=== PATIENT | female | born 1960 | race Two or more races ===

== ENCOUNTER 2025-01-14 17:24 | Emergency (ER) | payer OTHER, MEDICAID ==
[~2025-01-14] VITALS: Ht 157.5 cm; Wt 61.7 kg
[2025-01-14 18:26] VITALS: BP 135/65; PULSE 65; RESP 16; TEMP 97.5; O2SAT 97
--- NOTE | 2025-01-14 19:07 | ED.PDOC ---
GI ASSESSMENT HPI Comments 64-year-old female presents to ER with complaints of constipation x3 weeks. Patient reports that she has been experiencing constipation x "3 weeks" with 7/10 diffuse lower abdominal pain x1 day. Reports that she followed up with a provider at [facility] two days ago and was prescribed lactulose that she has been taking without relief. Patient presents to ER ambulatory on arrival, with steady gait, in no distress and states she was able to pass gas and reports that she did have a BM today that she states was "very small". Denies fever, nausea/vomiting, chest pain, diarrhea, changes in urination or any further symptoms/complaints Chief Complaint: Constipation Time Seen by MD: 18:14 Primary Care Provider: KREBS Reviewed Notes: Nurses Notes, Medications, Allergies Allergies: Coded Allergies: NO KNOWN ALLERGIES (Unverified , 01/14/25) Home Meds Active Scripts Docusate Sodium (Colace) 100 Mg Cap, 1 CAP PO BID, #30 CAP 0 Refills Prov:PRATIMA WOODWARD 01/14/25 Magnesium Citrate (Magnesium Citrate) 1.745 Gm/30 Ml Tess, 150 ML PO DAILY, #1 BOTTLE 0 Refills Prov:PRATIMA WOODWARD 01/14/25 Information Source: Patient Mode of Arrival: Ambulatory Past Medical History PAST MEDICAL HISTORY: Anxiety Surgical History: Denies all surgeries Family History Family History: Unknown Social History Smoker: Non-Smoker Alcohol: Denies ETOH Use Drugs: Denies Drug Use Lives In: Home Constitutional: denies: chills, diaphoresis, fatigue, fever, malaise, sweats, weakness, others EENTM: denies: blurred vision, double vision, ear bleeding, ear discharge, ear drainage, ear pain, ear ringing, eye pain, eye redness, hearing loss, mouth pain, mouth swelling, nasal discharge, nose bleeding, nose congestion, nose pain, photophobia, tearing, throat pain, throat swelling, voice changes, others Respiratory: denies: cough, hemoptysis, orthopnea, SOB at rest, shortness of breath, SOB with excertion, stridor, wheezing, others Cardiovascular: denies: chest pain, dizzy spells, diaphoresis, Dyspnea on exertion, edema, irregular heart beat, left arm pain, lightheadedness, palpitations, PND, syncope, others Gastrointestinal: reports: others (As stated in HPI) Genitourinary: denies: abnormal vagina bleeding, burning, dyspareunia, dysuria, flank pain, frequency, hematuria, incontinence, pain, , vagina discharge, urgency, others Neurological: denies: dizziness, fainting, headache, left sided numbness, left sided weakness, numbness, paresthesia, pre-existing deficit, right sided numbness, right sided weakness, seizure, speech problems, tingling, tremors, weakness, others Musculoskeletal: denies: back pain, gout, joint pain, joint swelling, muscle pain, muscle stiffness, neck pain, others Integumetry: denies: bruises, change in color, change in hair/nails, dryness, laceration, lesions, lumps, rash, wounds, others Allergic/Immunocompromised: denies: Difficulty Healing, Frequent Infections, Hives, Itching, others Hematologic/Lymphatic: denies: anemia, blood clots, easy bleeding, easy brui sing, swollen glands, others Endocrine: denies: excessive hunger, excessive sweating, excessive thirst, ex cessive urination, flushing, intolerance to cold, intolerance to heat, unexplained weight gain, unexplained weight loss, others Psychiatric: denies: anxiety, bipolar disorder, depression, hopeless, panic disorder, schizophrenia, sleepless, suicidal, others Physical Exam General Appearance: No Apparent Distress HEENT: PERRL/EOMI Neck: Full Range of Motion, Non-Tender, Normal Respiratory: Chest Non-Tender, Lungs Clear, No Accessory Muscle Use, No Respiratory Distress, Normal Breath Sounds Cardiovascular: No Murmur, No Gallop, Regular Rate/Rhythm Breast Exam: Deferred Gastrointestinal: No Organomegaly, No Pulsatile Mass, Normal Bowel Sounds, Soft, Other (Slight TTP to left lower abdomen noted. No rebound/guarding noted. No hernia/masses/skin changes noted. No otther TTP to abdomen noted) Genitalia: Deferred Pelvic: Deferred Rectal: Deferred Extremities: Normal capillary refill, Normal range of motion Neurologic: Alert, condenser tube tender II-XII nml as Tested, No Motor Deficits, Normal Affect, Normal Mood, No Sensory Deficits Cerebellar Function: Normal Reflexes: Normal Skin: Dry, Normal Color, Warm Lymphatic: No Adenopathy Was a procedure done? Was a procedure done?: No Sedation Sedation?: No GI differential Dx Differential Diagnosis: Bowel Obstruction, GI hemorrhage, Ischemic Bowel, Trauma intraabdominal, UTI X-Ray, Labs, Meds, VS Vital Signs Date Time Temp Pulse Resp B/P (MAP) Pulse Ox O2 Delivery O2 Flow Rate FiO2 01/14/25 18:26 97.5 65 16 135/65 (88) 97 97.5 01/14/25 18:26 65 16 97 Room Air 01/14/25 18:08 97.5 65 16 135/65 (88) 97 97.5 Lab Test 01/14/25 19:22 01/14/25 19:00 Range/Units White Blood Count 5.6 4.4-10.8 10^3/uL Red Blood Count 4.17 4.0-5.20 10^6/uL Hemoglobin 14.5 12.2-16.2 g/dL Hematocrit 42.3 36.0-46.0 % Mean Corpuscular Volume 101.6 H 80.0-100.0 fL Mean Corpuscular Hemoglobin 34.7 H 28.0-32.0 pg Mean Corpuscular Hemoglobin Concent 34.2 32.0-36.0 g/dL Red Cell Distribution Width 13.4 11.8-14.3 % Platelet Count 194 140-450 10^3/uL Mean Platelet Volume 7.7 6.9-10.8 fL Neutrophils (%) (Auto) 45.6 37.0-80.0 % Lymphocytes (%) (Auto) 44.5 10.0-50.0 % Monocytes (%) (Auto) 5.9 0.0-12.0 % Eosinophils (%) (Auto) 3.0 0.0-7.0 % Basophils (%) (Auto) 1.0 0.0-2.0 % Neutrophils # (Auto) 2.5 1.6-8.6 10 ^3/uL Lymphocytes # (Auto) 2.5 0.4-5.4 10 ^3/uL Monocytes # (Auto) 0.3 0-1.3 10 ^3/uL Eosinophils # (Auto) 0.2 0-0.8 10 ^3/uL Basophils # (Auto) 0.1 0-0.2 10 ^3/uL Nucleated Red Blood Cells 0.1 % Sodium Level 139 136-145 mmol/L Potassium Level 4.2 3.5-5.1 mmol/L Chloride Level 108 H 98-107 mmol/L Carbon Dioxide Level 26 20-31 mmol/L Anion Gap 5 5-15 Blood Urea Nitrogen 9 9-23 mg/dL Creatinine 0.82 0.550-1.02 mg/dL Glomerular Filtration Rate Calc 79 >90 mL/min BUN/Creatinine Ratio 11.0 10.0-20.0 Serum Glucose 103 74-106 mg/dL Calcium Level 10.3 8.7-10.4 mg/dL Total Bilirubin 0.7 0.2-1.0 mg/dL Aspartate Amino Transferase (AST) 22 13-40 U/L Alanine Aminotransferase (ALT) 21 7-40 U/L Alkaline Phosphatase 36 L 46-116 U/L Total Protein 7.5 5.7-8.2 g/dL Albumin 4.8 3.2-4.8 g/dL Lipase 31 12-53 U/L Urine Color Colorless Yellow Urine Clarity Clear Clear Urine pH 7.0 5.0-9.0 Urine Specific Gordon 1.004 1.001-1.035 Urine Protein Negative Negative Urine Ketones Negative Negative Urine Blood Negative Negative /uL Urine Nitrite Negative Negative Urine Bilirubin Negative Negative Urine Urobilinogen Normal Negative mg/dL Urine Leukocyte Esterase Negative Negative /uL Urine RBC 1 0 - 4 /hpf Urine Microscopic WBC 0-5 /HPF Urine Squamous Epithelial Cells Few <5 /hpf Urine Bacteria Few H None Seen /hpf Urine Glucose Normal Normal mg/dL PATIENT: DAYANA METZACCT: [id number]: [id number] : 1960 LOC: ER ROOM / BED: / AGE / SEX: 64 / F ADM STATUS: REG ER SERVICE 13 ORDERING PHYSICIAN: PRATIMA WOODWARD PROCEDURE(s): ABPL - CT AB PEL WO CON-NO ORAL OR IV REASON: constipation ORDER NUMBER(s): [id number], ACCESSION NUMBER(s): [id number] Exam: CT CT AB PEL WO CON-NO ORAL OR IV History: constipation Comparison Study: None available at time of dictation. TECHNIQUE: Multidetector CT of the abdomen was performed from lung bases to pubic symphysis. Imaging was performed without IV contrast. Axial, coronal and sagittal multiplanar reformats were obtained from the axial data set by the technologist. Radiation Dose Information: CT Dose: CTDI volume is 5.5 mGy. Dose-length product is 261.88 mGy*cm FINDINGS: Bibasilar atelectasis. Partially visualized heart is unremarkable. Liver, spleen, gallbladder, pancreas and adrenal glands are unremarkable. Kidneys, ureters and urinary bladder unremarkable. Uterus and adnexa are unremarkable. Stomach is unremarkable. Small bowel loops are unremarkable. Appendix is Incompletely visualized with the visualized appendix unremarkable. Without complete visualization of the appendix, can not exclude acute appendicitis. Redundant colon. Small amount of fecal material within the sigmoid. Otherwise, moderate to large amount of fecal material within the remainder of the colon. No evidence of intraperitoneal free air or free fluid. No evidence of aortic aneurysm. Mild atherosclerotic calcification of the aorta. No significant lymphadenopathy. Small fat containing umbilical hernia. The soft tissues unremarkable. Partially visualized left breast implant. No destructive osseous lesions are noted. Mild loss of superior vertebral body height of T11 with superior T11 endplate Schmorl node of unknown chronicity. Punctate sclerotic foci of the left iliac bone which may represent bone islands. IMPRESSION: No evidence of acute abdominopelvic abnormalities. Small amount of fecal material within the sigmoid. Otherwise, moderate to large amount of fecal material within the remainder of the colon. ATED BY: DREA ALEXANDER DO DICTATED DATE/TIME: 01/14/251939 SIGNED BY: DREA ALEXANDER DO SIGNED DATE/TIME: 01/14/251939 CC: CBC reviewed without any significant abnormalities CMP reviewed without any significant abnormalities Urinalysis reviewed-unremarkable CT abdomen/pelvis without contrast reviewed Patient had improvement in symptoms and in no distress prior to discharge Diet education discussed Advised to follow up with PCP in 1-2 days Patient verbalized understanding and agreeable with current plan of care Advised to return to ER immediately if symptoms worsen Images Reviewed?: Images reviewed and evaluated by Time of 1ST Reevaluation: 19:02 Reevaluation 1ST: N/A Time of 2ND Reevaluation: 20:00 Reevaluation 2ND: Improved Patient Education/Counseling: Diagnosis, Treatment, Prognosis, Need For Follow Up Family Education/Counseling: No Family Present Departure 1 Departure Time of Disposition: 20:02 Impression: Primary Impression: Constipation Qualified Codes: K59.00 - Constipation, unspecified Disposition: 01 HOME / SELF CARE / HOMELESS Condition: Stable e-Prescriptions Docusate Sodium (Colace) 100 Mg Cap 1 CAP PO BID, #30 CAP 0 Refills Prov: PRATIMA WOODWARD 01/14/25 Magnesium Citrate (Magnesium Citrate) 1.745 Gm/30 Ml Tess 150 ML PO DAILY, #1 BOTTLE 0 Refills Prov: PRATIMA WOODWARD 01/14/25 Discharged With: Self Critical Care Note Critical Care Time?: No Stability Stability form required: No Heart Score Heart Score: Heart Score Response (Comments) Value History N/A 0 EKG N/A 0 Age N/A 0 Risk Factors N/A 0 Troponin N/A 0 Total 0 PRATIMA WOODWARD Jan 14, 2025 19:07
[2025-01-14 19:33] LABS: Urine Bacteria FEW /hpf (None Seen); Urine Blood Negative /uL (Negative); Urine Clarity Clear (Clear); Urine Color Colorless (Yellow); Urine Protein, UAD Negative (Negative); Urine Specific Gravity 1.004 (1.001-1.035); Urine Squamous Epithelial Cell FEW /hpf (<5); Urine Urobilinogen Normal (Negative)
--- NOTE | 2025-01-14 19:43 | DVH ---
Exam: CT CT AB PEL WO CON-NO ORAL OR IV History: constipation Comparison Study: None available at time of dictation. TECHNIQUE: Multidetector CT of the abdomen was performed from lung bases to pubic symphysis. Imaging was performed without IV contrast. Axial, coronal and sagittal multiplanar reformats were obtained fr om the axial data set by the technologist. Radiation Dose Information: CT Dose: CTDI volume is 5.5 mGy. Dose-length product is 261.88 mGy*cm FINDINGS: Bibasilar atelectasis. Partially visualized heart is unremarkable. Liver, spleen, gallbladder, pancreas and adrenal glands are unremarkable. Kidneys, ureters and urinary bladder unremarkable. Uterus and adnexa are unremarkable. Stomach is unremarkable. Small bowel loops are unremarkable. Appendix is Incompletely visualized wit h the visualized appendix unremarkable. Without complete visualization of the appendix, can not exclu de acute appendicitis. Redundant colon. Small amount of fecal material within the sigmoid. Otherwise , moderate to large amount of fecal material within the remainder of the colon. No evidence of intraperitoneal free air or free fluid. No evidence of aortic aneurysm. Mild atherosclerotic calcification of the aorta. No significant lymphadenopathy. Small fat containing umbilical hernia. The soft tissues unremarkable. Partially visualized left michele ast implant. No destructive osseous lesions are noted. Mild loss of superior vertebral body height of T11 with superior T11 endplate Schmorl node of unknown chronicity. Punctate sclerotic foci of the le ft iliac bone which may represent bone islands. IMPRESSION: No evidence of acute abdominopelvic abnormalities. Small amount of fecal material within the sigmoid. Otherwise, moderate to large amount of fecal mate rial within the remainder of the colon.
[2025-01-14 19:45] LABS: Basophils # (auto) 0.1 10 ^3/uL (0-0.2); Hemoglobin 14.5 g/dL (12.2-16.2); Mean Corpuscular Hgb Conc. 34.2 g/dL (32.0-36.0); Monocytes # (auto) 0.3 10 ^3/uL (0-1.3); Monocytes % (auto) 5.9 % (0.0-12.0); Nucleated Red Blood Cells % 0.1 %; Red Blood Cells 4.17 10^6/uL (4.0-5.20)
[2025-01-14 19:46] LABS: Eosinophils # (auto) 0.2 10 ^3/uL (0-0.8); Hematocrit 42.3 % (36.0-46.0); Lymphocytes # (auto) 2.5 10 ^3/uL (0.4-5.4); Lymphocytes % (auto) 44.5 % (10.0-50.0); Mean Corpuscular Hemoglobin 34.7 pg (28.0-32.0); Mean Corpuscular Volume 101.6 fL (80.0-100.0); Neutrophils # (auto) 2.5 10 ^3/uL (1.6-8.6); Neutrophils % (auto) 45.6 % (37.0-80.0); Platelet Count (auto) 194 10^3/uL (140-450); Red Cell Distribution Width 13.4 % (11.8-14.3); White Blood Cell 5.6 10^3/uL (4.4-10.8)
[2025-01-14 19:58] LABS: Alanine Aminotransferase 21 U/L (7-40); Albumin 4.8 g/dL (3.2-4.8); Anion Gap 5 (5-15); Aspartate Aminotransferase 22 U/L (13-40); Calcium 10.3 mg/dL (8.7-10.4); Carbon Dioxide 26 mmol/L (20-31); Glucose 103 mg/dL (74-106); Lipase 31 U/L (12-53); Potassium 4.2 mmol/L (3.5-5.1); Sodium 139 mmol/L (136-145); Total Protein 7.5 g/dL (5.7-8.2)
[2025-01-14 19:59] LABS: Bilirubin, Total 0.7 mg/dL (0.2-1.0)
[2025-01-14 20:02] LABS: Alkaline Phosphatase 36 U/L (46-116); Blood Urea Nitrogen 9 mg/dL (9-23); Chloride 108 mmol/L (98-107)
[2025-01-14] MEDS ORDERED: MAGNSOL PO (20:11)
[2025-01-14] MEDS ORDERED: DOCU-94 PO (20:11)
== END 2025-01-14 20:22 | disposition home or self-care (01) ==
LOC: ER 17:24
DX: K59.00 Constipation, unspecified (principal); F41.9 Anxiety disorder, unspecified; Z79.899 Other long term (current) drug therapy
CPT/HCPCS: 36415; 74176; 80053; 81001; 83690; 85025